=== PATIENT | male | born 1965 | race Caucasian/White ===

== ENCOUNTER → 2018-09-21 13:50 | Outpatient (REF) | payer OTHER, SELFPAY | LOC: LAB 13:50 | PROVIDERS: Visit Provider Otolaryngology | DX: R43.0 Anosmia (principal); J32.9 Chronic sinusitis, unspecified; J33.9 Nasal polyp, unspecified; J34.89 Other specified disorders of nose and nasal sinuses | CPT/HCPCS: 87070; 87077; 87147; 87186 ==